=== PATIENT | female | born 1965 ===

== ENCOUNTER → 2018-09-15 | Outpatient (CLI) | payer OTHER ==
--- NOTE | 2018-09-16 16:14 | US ---
EXAM DESCRIPTION: Breast,Left: Ultrasound CLINICAL HISTORY: 53 yearsFemaleLEFT BREAST LUMP. COMPARISON: Digital diagnostic tomosynthesis bilateral breast on this visit. TECHNIQUE: Transcutaneous scanning of the left breast utilizing burdick-scale and Doppler modes. Scanning performed by the acid bleacher and Dr. Hodges. FINDINGS: Scanning of the undersurface of the left breast with emphasis at the 6:00 position 8 cm from the nipple. Mostly fatty echotexture with scattered fibroglandular elements. Included capsule of the left saline implant appears intact. No distinct solid mass or cyst. No parenchymal edema or large calcifications. No abnormalities on the overlying skin surface. Normal vascularity. IMPRESSION: 1. Bi-Rads Category 2: Benign. 2. Please refer to bilateral diagnostic digital breast tomosynthesis on this visit. The FINDINGS and the FOLLOW-UP plan were reviewed in person with the patient after the examination. Written communication explaining the IMPRESSION and FOLLOW-UP will be mailed to the patient and referring care provider. Electronically signed by: Gume Hodges MD 09/16/2018 4:13 PM CDT
--- NOTE | 2018-09-19 09:40 | MAM ---
EXAM DESCRIPTION: 3D Diagnostic, Bilateral: Digital Mammography CLINICAL HISTORY: 53 yearsFemaleLEFT BREAST LUMP . Probable lump undersurface of the left breast for 4 months. No personal history of breast cancer. Remote family history of breast cancer. Childbirth. Postmenopausal 17 years. No HRT. Bilateral breast augmentation 2004. Lifetime risk of developing breast cancer (Tyrer-Cuzick model) percentage not measured. COMPARISON: 2-D digital screening bilateral mammography with Mita implant displacement images. 09/11/2016.. TECHNIQUE: Bilateral CC LM MLO projection full-field images, with Mita implant displacement images, digital mammographic tomosynthesis technique. 2-D conventional full-field images without Mita implant displacement. CAD not utilized. FINDINGS: The breast parenchymal density pattern is: Scattered areas of fibroglandular density. No skin thickening or nipple retraction marker visualized at the 600 clock position of the mid third of the left breast. No distinct mammographic abnormality. Bilateral retroglandular saline implants. Capsules appear intact where seen. Mammographically stable since the prior study. ULTRASOUND: Scanning of the undersurface of the left breast with emphasis at the 6:00 position 8 cm from the nipple, (where skin marker is located). Mostly fatty echotexture with scattered fibroglandular elements. Included capsule of the left saline implant appears intact. No distinct solid mass or cyst. No parenchymal edema or large calcifications. No abnormalities on the overlying skin surface. Normal vascularity. IMPRESSION: Benign exam. BIRAD CATEGORY: 2 BENIGN FINDINGS. RECOMMENDATIONS: FOLLOW UP: Return to routine digital bilateral screening, one year interval from August 2018. Written communication explaining the IMPRESSION and follow-up, will be mailed to the patient and referring health care provider. According to the [employer], yearly mammograms are recommended starting at age 40 and continuing as long as a woman is in good health. Any breast change noted on a breast self-exam should be reported promptly to the patient's healthcare provider. Breast MRI is recommended for women with an approximately 20-25% or greater lifetime risk of breast cancer, including women with a strong family history of breast or ovarian cancer and women who have been treated for Hodgkin's disease. A negative mammographic report should not delay tissue diagnosis in patients with significant clinical history or physical findings. Extremely dense breast tissue limits the sensitivity of digital mammography. Electronically signed by: Gume Hodges MD 09/19/2018 9:39 AM CDT
== END ==
LOC: MAMMO 13:00
PROVIDERS: ATTEND Family Medicine
DX: N63.20 Unspecified lump in the left breast, unspecified quadrant (principal)
CPT/HCPCS: 76641; 77066; G0279